=== PATIENT | female | born 1965 | race Caucasian/White ===

== ENCOUNTER → 2016-04-28 | Outpatient (CLI) | payer OTHER ==
--- NOTE | 2016-04-29 11:39 | MM ---
Reason for exam: screening (asymptomatic). Last mammogram was performed 4 years and 6 months ago. History: Family history of breast cancer in paternal grandmother and breast cancer in maternal grandmother. Cancelled Left US Needle Biopsy of the left breast, March 07, 2009. Physical Findings: A clinical breast exam by your physician is recommended on an annual basis and results should be correlated with mammographic findings. MG Screening Mammo w CAD Bilateral CC and MLO view(s) were taken. Prior study comparison: October 21, 2011, bilateral digital screening mammo w/CAD. No significant changes when compared with prior studies. ASSESSMENT: Benign, BI-RAD 2 RECOMMENDATION: Routine screening mammogram of both breasts in 1 year.
== END | disposition home or self-care (01) ==
LOC: RADMAMWWP 14:29
PROVIDERS: ATTEND Family Medicine
DX: Z12.31 Encounter for screening mammogram for malignant neoplasm of breast (principal)

== ENCOUNTER → 2018-07-03 | Outpatient (CLI) | payer OTHER ==
--- NOTE | 2018-07-03 08:09 | US ---
EXAMINATION TYPE: US abdomen complete DATE OF EXAM: 07/03/2018 COMPARISON: NONE CLINICAL HISTORY: 52-year-old female R19.01 Right upper quadrant abdominal swelling. Pt states palpab le area right flank TECHNIQUE: Multiple sonographic images of the abdomen are obtained. FINDINGS: EXAM MEASUREMENTS: Liver Length: 17.3 cm Gallbladder Wall: 0.2 cm CBD: 0.3 cm Spleen: 8.6 cm Right Kidney: 9.6 x 4.7 x 4.2 cm Left Kidney: 9.4 x 5.5 x 4.7 cm Pancreas: Body wnl, head and tail obscured by overlying bowel gas Liver: Heterogeneous, difficult to penetrate Gallbladder: wnl Evidence for sonographic Swain's sign: No CBD: wnl Spleen: wnl Right Kidney: Lobulated contour Left Kidney: Lobulated contour No hydronephrosis on either side. Upper IVC: wnl Abd Aorta: wnl Right lateral ABD scanned where pt feels palpable- No abnormality could be appreciated of the superfi cial tissues. IMPRESSION: 1. Slightly echogenic and heterogeneous liver could be on a technical basis or could reflect at least mild fatty infiltration. Correlate with LFTs, lipid profile, and patient risk factors. 2. Additional targeted scanning along the right flank at the patient directly palpable site shows no solid or cystic lesion of the superficial tissues. Further clinical correlation recommended. Area can be reimaged if any growth is noted.
== END | disposition home or self-care (01) ==
LOC: RADUSWWP 07:07
PROVIDERS: ATTEND Nurse Practitioner
DX: R93.2 Abnormal findings on diagnostic imaging of liver and biliary tract (principal); N19 Unspecified kidney failure; R19.01 Right upper quadrant abdominal swelling, mass and lump
CPT/HCPCS: 76700

== ENCOUNTER → 2018-08-07 | Outpatient (CLI) | payer OTHER ==
--- NOTE | 2018-08-07 11:45 | MM ---
Reason for exam: screening (asymptomatic). Last mammogram was performed 2 years and 3 months ago. History: Family history of breast cancer in paternal grandmother and breast cancer in maternal grandmother. Cancelled Left US Needle Biopsy of the left breast, March 07, 2009. Physical Findings: A clinical breast exam by your physician is recommended on an annual basis and results should be correlated with mammographic findings. MG Screening Mammo w CAD Bilateral CC and MLO view(s) were taken. Prior study comparison: April 28, 2016, bilateral MG screening mammo w CAD. October 21, 2011, bilateral digital screening mammo w/CAD. There are scattered fibroglandular densities. There is no discrete abnormality. ASSESSMENT: Negative, BI-RAD 1 RECOMMENDATION: Routine screening mammogram of both breasts in 1 year.
== END | disposition home or self-care (01) ==
LOC: RADMAMWWP 09:32
PROVIDERS: ATTEND Family Medicine
DX: Z12.31 Encounter for screening mammogram for malignant neoplasm of breast (principal)
CPT/HCPCS: 77067

== ENCOUNTER 2018-08-11 10:01 | Day surgery (SDC) | payer OTHER ==
[2018-08-09 15:15] VITALS: BMI 31.3
[~2018-08-11 10:01] MED LIST: LACTATED RINGERS 1,000 ML IV SCH
[2018-08-11 10:20] VITALS: TEMP 97
[2018-08-11] MEDS ORDERED: PROPOFOL 10 MG/ML 20 ML VIAL IV ONE (11:08)
[2018-08-11] MEDS ORDERED: LACTATED RINGERS 1,000 ML IV ONE (11:40)
[2018-08-11] MEDS ORDERED: IV FLUID CONTINUATION 1,000 ML IV ONE (11:40)
[2018-08-11 11:43] VITALS: RESP 16
--- NOTE | 2018-08-11 12:11 | P.PCN ---
Date of Procedure: 08/11/18 Procedure(s) Performed: BRIEF HISTORY: Patient is a 52-year-old pleasant white female, scheduled for an elective colonoscopy as a part of screening for colorectal neoplasia. PROCEDURE PERFORMED: Colonoscopy with snare polypectomy. PREOPERATIVE DIAGNOSIS: Screening for colon cancer. IV sedation per Anesthesia. PROCEDURE: After informed consent was obtained, the patient, was brought into the endoscopy unit. IV sedation was administered by Anesthesia under continuous monitoring. Digital rectal examination was normal. Initially the Olympus CF-160 flexible video colonoscope was then inserted in the rectum, gradually advanced into the cecum without any difficulty. Careful examination was performed as the scope was gradually being withdrawn. Ileocecal valve and the appendiceal orifice were visualized and appeared normal. Prep was excellent. Mucosa of the cecum, ascending colon, transverse colon, descending colon, sigmoid colon, and rectum appeared normal. There was a 5 mm sessile polyp noted in the sigmoid colon that was removed by snare polypectomy. Retroflexion was performed in the rectum and no lesions were seen. The patient tolerated the procedure well. IMPRESSION: 5 mm sessile sigmoid colon polyp status post polypectomy Rest of the colon appeared normal RECOMMENDATIONS: Findings of this examination were discussed with the patient as well as her family. She was advised to follow with the biopsy results. If the biopsy shows an adenoma, she can have a repeat colonoscopy in 5 years.
[2018-08-11 12:20] VITALS: BP 122/69; PULSE 77
== END 2018-08-11 12:10 | disposition home or self-care (01) ==
LOC: ORWHC2ENDO 10:01
PROVIDERS: ATTEND Internal Medicine Gastroenterology
DX: Z12.11 Encounter for screening for malignant neoplasm of colon (principal); K63.5 Polyp of colon; I10 Essential (primary) hypertension; F17.200 Nicotine dependence, unspecified, uncomplicated; F39 Unspecified mood [affective] disorder; Z79.899 Other long term (current) drug therapy; Z88.5 Allergy status to narcotic agent
CPT/HCPCS: 88305; 84132; 45385; J2704

== ENCOUNTER → 2019-11-29 | Outpatient (CLI) | payer OTHER ==
--- NOTE | 2019-12-03 08:50 | MM ---
Reason for exam: screening (asymptomatic). Last mammogram was performed 1 year and 4 months ago. History: Patient is postmenopausal. Family history of breast cancer in paternal grandmother and breast cancer in maternal grandmother. Cancelled Left US Needle Biopsy of the left breast, March 07, 2009. Physical Findings: A clinical breast exam by your physician is recommended on an annual basis and results should be correlated with mammographic findings. MG Screening Mammo w CAD Bilateral CC and MLO view(s) were taken. Prior study comparison: August 07, 2018, bilateral MG screening mammo w CAD. April 28, 2016, bilateral MG screening mammo w CAD. There are scattered fibroglandular densities. No significant changes when compared with prior studies. ASSESSMENT: Negative, BI-RAD 1 RECOMMENDATION: Routine screening mammogram of both breasts in 1 year.
== END | disposition home or self-care (01) ==
LOC: RADMAMWWP 14:35
PROVIDERS: ATTEND Family Medicine
DX: Z12.31 Encounter for screening mammogram for malignant neoplasm of breast (principal)
CPT/HCPCS: 77067

== ENCOUNTER → 2022-02-05 | Outpatient (CLI) | payer OTHER ==
--- NOTE | 2022-02-05 14:17 | US ---
EXAMINATION TYPE: US kidneys/renal and bladder DATE OF EXAM: 02/05/2022 COMPARISON: Ultrasound abdomen July 03, 2018 CLINICAL HISTORY: r94.4 ABNORMAL RESULTS OF KIDNEY. abn renal function test, rt flank pain EXAM MEASUREMENTS: Right Kidney: 9.6 x 3.9 x 4.9 cm Left Kidney: 10.3 x 4.4 x 5.2 cm Right Kidney: No hydronephrosis or masses seen Left Kidney: 0.7 x 0.8cm inferior stone seen Bladder: wnl Bilateral Jets seen: Yes There is no evidence for hydronephrosis at this point in time. No nephrolithiasis is seen. No dakota s are identified. There is 7 mm hyperechoic focus lower pole left kidney could reflect nonobstructing renal calculus. The urinary bladder is adequately distended. Bilateral ureteral jets are seen. IMPRESSION: No hydronephrosis seen bilaterally. Possible 7 mm nonobstructing calculus lower pole leve l left kidney. Correlate clinically.
--- NOTE | 2022-02-08 12:42 | MM ---
Reason for Exam: Screening (asymptomatic). Last mammogram was performed 2 year(s) and 2 month(s) ago. Patient History: Menarche at age 12. First Full-Term at age 26. Postmenopausal. 03/07/2009, Cancelled Left US Needle Biopsy on the left side. Paternal grandmother had breast cancer. Maternal grandmother had breast cancer. Risk Values: Milagro 5 year model risk: 1.4%. NCI Lifetime model risk: 9.9%. Prior Study Comparison: 04/28/2016 Bilateral Screening Mammogram, [facility]. 08/07/2018 Bilateral Screening Mammogram, [facility]. 11/29/2019 Bilateral Screening Mammogram, [facility]. Tissue Density: There are scattered fibroglandular densities. Findings: Analyzed By CAD. Pattern appears stable and symmetrical No suspicious groups of microcalcifications, spiculated or lobular masses, architectural distortion or other secondary signs of malignancy are mammographically apparent. Overall Assessment: Benign, BI-RAD 2 Management: Screening Mammogram of both breasts in 1 year. A negative mammogram report should not preclude additional follow up of suspicious palpable abnormalities. Patient should continue monthly self breast exam. A clinical breast exam by your physician is recommended on an annual basis and results should be correlated with mammographic findings. Electronically signed and approved by: Gera Menchaca D.O. Radiologis
== END | disposition home or self-care (01) ==
LOC: RADMAMWWP 13:19
PROVIDERS: ATTEND Family Medicine
DX: Z12.31 Encounter for screening mammogram for malignant neoplasm of breast (principal); N20.0 Calculus of kidney; R94.4 Abnormal results of kidney function studies; Z78.0 Asymptomatic menopausal state; Z80.3 Family history of malignant neoplasm of breast
CPT/HCPCS: 76770; 77067

== ENCOUNTER → 2022-05-11 | Outpatient (CLI) | payer OTHER ==
--- NOTE | 2022-05-11 11:20 | CT ---
EXAMINATION TYPE: CT abdomen pelvis wo con CT DLP: 944 mGycm, Automated exposure control for dose reduction was used. DATE OF EXAM: 05/11/2022 11:09 AM COMPARISON: [facility] 04/23/2022, renal ultrasound 02/05/2022 CLINICAL INDICATION:Female, 56 years old with history of N20.0 Calculus of kidney; Hx renal stones, a lso expressed concern over possible gallbladder stones/issues. TECHNIQUE: Standard CT of the abdomen and pelvis without IV or oral contrast. Lack of IV or oral co ntrast limits evaluation of solid and hollow organ viscera. Coronal and sagittal reformats were perfo rmed. FINDINGS: LOWER CHEST: Lung bases are clear. Small left posterior fat filled Bochdalek hernia identified. ABDOMEN LIVER: Unremarkable noncontrast appearance. GALLBLADDER AND BILE DUCTS: Contracted gallbladder. Ultrasound is more sensitive for detection of gal lstones. No biliary ductal dilatation. PANCREAS: Unremarkable noncontrast appearance SPLEEN: Unremarkable noncontrast appearance. ADRENAL GLANDS: Unremarkable noncontrast appearance.. KIDNEYS AND URETERS: No hydronephrosis. Nonobstructive 2 mm left inferior pole calculus. No ureteral calculi identified. Nonspecific bilateral perinephric fat stranding. PELVIS BLADDER: Unremarkable REPRODUCTIVE: Unremarkable noncontrast appearance. ABDOMEN & PELVIS STOMACH AND BOWEL: Stomach and duodenum are unremarkable. Sigmoid colonic diverticulosis without evid ence for acute diverticulitis. The appendix is within normal limits. No evidence of bowel obstruction . PERITONEUM: No evidence of pneumoperitoneum or free fluid. VASCULATURE: No evidence of aortic aneurysm. MUSCULOSKELETAL: No acute osseous abnormalities. Grade 1 anterolisthesis of L5 on S1 with a left L5 p ars defect. LYMPH NODES: No gross evidence for lymphadenopathy. SOFT TISSUE/ABDOMINAL WALL: Tiny fat filled umbilical hernia. Small bilateral fat filled inguinal her nias. IMPRESSION: 1. No evidence for obstructive uropathy. 2. Nonobstructive 2 mm calculus within the inferior left kidney. 3. Colonic diverticulosis without evidence for acute diverticulitis. 4. Grade 1 anterolisthesis of L5 on S1 with a left L5 pars defect.
== END | disposition home or self-care (01) ==
LOC: RADCTMAIN 10:41
PROVIDERS: ATTEND Urology
DX: N20.0 Calculus of kidney (principal); K57.30 Diverticulosis of large intestine without perforation or abscess without bleeding; M43.17 Spondylolisthesis, lumbosacral region
CPT/HCPCS: 74176